=== PATIENT | female | born 1960 | race Caucasian/White ===

== ENCOUNTER 2024-10-31 08:51 | Emergency (ER) | payer MEDICARE, MEDICAID ==
--- NOTE | 2024-10-31 14:16 | RADIOLOGY REPORT ---
CHEST RADIOGRAPH Indication: CP Technique: Single frontal view of the chest was obtained Comparison: None FINDINGS: The cardiac silhouette is enlarged. The lungs demonstrate perihilar airspace opacities. Left basilar airspace opacities. The pulmonary vasculature is prominent. Small bilateral pleural effusions. There is no pneumothorax. IMPRESSION: 1. . As above<< >>
[2024-10-31 14:32] LABS: BASOPHILS % (AUTO) 0.9 % (0-1); EOSINOPHILS # (AUTO) 0.2 X10'3 (0-0.9); EOSINOPHILS % (AUTO) 3.8 % (0-6); HEMATOCRIT 38.9 % (35.0-45.0); HEMOGLOBIN 12.9 g/dl (12.0-16.0); LYMPHOCYTES # (AUTO) 1.2 X10'3 (1.1-4.8); LYMPHOCYTES % (AUTO) 23.7 % (21-51); MEAN CORPUSCULAR HEMOGLOBIN 29.5 PG (27.0-31.0); MEAN CORPUSCULAR HGB CONC 33.2 g/dL (33.0-36.5); MEAN CORPUSCULAR VOLUME 88.8 FL (78-98); MEAN PLATELET VOLUME 7.8 FL (7.4-10.4); MONOCYTES # (AUTO) 0.4 X10'3 (0-0.9); MONOCYTES % (AUTO) 8.6 % (2-12); NEUTROPHILS # (AUTO) 3.2 X10'3 (1.8-7.7); PLATELET COUNT 344 X10'3 (140-440); RED BLOOD COUNT 4.38 X10'6 (4.20-5.60); RED CELL DISTRIBUTION WIDTH 14.6 % (11.5-14.5); WHITE BLOOD COUNT 5.1 X10'3 (4.5-11.0)
[2024-10-31 14:49] LABS: ALANINE AMINOTRANSFERASE 39 U/L (12-78); ALBUMIN 3.6 G/DL (3.4-5.0); ALBUMIN/GLOBULIN RATIO 0.9 (1.1-1.5); ALKALINE PHOSPHATASE 107 IU/L (46-116); ANION GAP 8 (8-16); ASPARTATE AMINO TRANSFERASE 19 U/L (10-37); BILIRUBIN,TOTAL 0.2 MG/DL (0.1-1.0); BLOOD UREA NITROGEN 17 MG/DL (7-18); BUN/CREATININE RATIO 27.4 (10.0-20.0); CALCIUM 9.1 MG/DL (8.5-10.1); CHLORIDE 105 MMOL/L (99-107); CREATININE 0.62 MG/DL (0.40-0.90); GLUCOSE 86 MG/DL (70-104); POTASSIUM 4.3 MMOL/L (3.5-5.1); PRO BRAIN NATRIURETIC PEPTIDE 79 PG/ML (0-125); SODIUM 144 MMOL/L (135-145); TOTAL CARBON DIOXIDE 30.7 MMOL/L (24-32); TOTAL PROTEIN 7.5 G/DL (6.4-8.2); eGFR > 90 ML/MIN
--- NOTE | 2024-10-31 15:13 | Physician Documentation ---
History of Present Illness ~ General Chief Complaint: Multiple Medical Complaints Stated Complaint: MED REACTION AND MED REQUEST Time Seen by MD: 13:54 History of Present Illness Initial Comments Patient is seen today with her caregiver with complaints of needing multiple medication refills as well as they have concerns for possible swelling of the lower extremities. Patient is new to this new facility and is new to this new caregiver. Patient is developmentally delayed and disabled and is an unreliable historian. Patient is non verbal. Medication Reconciliation Allergies: Coded Allergies: No Allergy Information Available (Unverified , 10/31/24) Review of Systems Constitutional: Denies: chills, fever, weakness Eyes: Denies: pain, blurred vision ENT: Denies: ear pain, nose pain, throat pain, mouth pain Respiratory: Denies: cough, shortness of breath Cardiovascular: Denies: chest pain, palpitations Gastrointestinal: Denies: abdominal pain, nausea, vomiting Genitourinary: Denies: burning, dysuria Female Genitalia: Denies: vaginal discharge, pelvic pain Neurological: Denies: headache, dizziness Musculoskeletal: Denies: pain, swelling Integumentary: Denies: rash, lesions Allergic/Immunologic: Denies: hives, itching Hematologic/Lymphatic: Denies: no symptoms reported Psychiatric: Denies: depression, anxiety Physical Exam Physical Exam Vital Signs: Temperature: 98.2, Source: Oral, Heart Rate: 73, Respiratory Rate: 16, BP: 114/80, Pulse Oximetry: 94 Oxygen Flow Rate: 0 Physical Exam General: Awake and Alert, no acute distress. HEENT: Conjunctiva pink, Sclera clear, Mucus Membranes moist. Neck: Supple without masses and tenderness. Resp: Patient's lungs on auscultation or completely clear without any rales, rhonchi, coarse breath sounds or wheezes. Respirations are Unlabored. Lungs clear to auscultation bilaterally. Heart: Regular Rate and rhythm, normal S1 and S2 without murmur, rub or gallop. Abdomen: Soft and non tender no organomegaly Extremities: No cyanosis,clubbing or edema. Patient has no sign of pitting edema of either lower extremity. Skin: Warm and Dry. Progress Results/Orders Results/Orders Vital Signs 10/31/24 10/31/24 08:55 11:54 Temp 98.0 98.2 Pulse 73 73 Resp 16 16 B/P (MAP) 128/80 114/80 (91) Pulse Ox 97 94 O2 Flow Rate 0 0 Laboratory Tests Test 10/31/24 13:59 White Blood Count 5.1 Red Blood Count 4.38 Hemoglobin 12.9 Hematocrit 38.9 Mean Corpuscular Volume 88.8 Mean Corpuscular Hemoglobin 29.5 Mean Corpuscular Hemoglobin Concent 33.2 Red Cell Distribution Width 14.6 H Platelet Count 344 Mean Platelet Volume 7.8 Neutrophils (%) (Auto) 63.0 Lymphocytes (%) (Auto) 23.7 Monocytes (%) (Auto) 8.6 Eosinophils (%) (Auto) 3.8 Basophils (%) (Auto) 0.9 Neutrophils # (Auto) 3.2 Lymphocytes # (Auto) 1.2 Monocytes # (Auto) 0.4 Eosinophils # (Auto) 0.2 Basophils # (Auto) 0.0 CBC Comment Sodium Level 144 Potassium Level 4.3 Chloride Level 105 Carbon Dioxide Level 30.7 Anion Gap 8 Blood Urea Nitrogen 17 Creatinine 0.62 Estimated GFR/1.73 m2 > 90 BUN/Creatinine Ratio 27.4 H Glucose Level 86 Calcium Level 9.1 Total Bilirubin 0.2 Aspartate Amino Transf (AST/SGOT) 19 Alanine Aminotransferase (ALT/SGPT) 39 Alkaline Phosphatase 107 Troponin I High Sensitivity < 4 L Troponin I High Sens Percent Delta Troponin I Hi Sens Absolute Change Pro-B-Type Natriuretic Peptide 79 Total Protein 7.5 Albumin 3.6 Globulin 3.9 Albumin/Globulin Ratio 0.9 L Chemistry Comments Medical Decision Making Findings Patient is seen today with her caregiver with complaints of needing multiple medication refills as well as they have concerns for possible swelling of the lower extremities. Patient is new to this new facility and is new to this new caregiver. Patient is developmentally delayed and disabled and is an unreliable historian. Patient is non verbal. Patient is given refill of medications lacosamide 200 mg one tab once a day as well as Abilify 10 mg 1/2 tablet once a day. Patient will follow up with primary care provider soon as possible for refills for further refills. Patient will return to ED with any worsening, concerning or changing symptoms. Patient also did have some findings on chest x-ray however her vital signs are completel y stable in patient has chest auscultation completely clear on exam, and patient's labs are completely unremarkable without any sign of infection. Patient will follow up with primary care provider for repeat chest x-ray PA view and lateral view in 7-14 days. Or sooner as needed. Departure Disposition: 01 HOME / SELF CARE / HOMELESS Impression: Primary Impression: Mental developmental delay Additional Impression: Medication refill Condition: Stable Additional Instructions: Patient on exam did not have any physical exam findings of lower extremity edema. Patient is given refill of medications lacosamide 200 mg one tab once a day as well as Abilify 10 mg 1/2 tablet once a day. Patient will follow up with primary care provider soon as possible for refills for further refills. Patient will return to ED with any worsening, concerning or changing symptoms. Patient also did have some findings on chest x-ray however her vital signs are completely stable in patient has chest auscultation completely clear on exam, and patient's labs are completely unremarkable without any sign of infection. Patient will follow up with primary care provider for repeat chest x-ray PA view and lateral view in 7-14 days. Or sooner as needed. [facility] Referrals: NO PRIMARY CARE PROVIDER (PCP) Prescriptions Aripiprazole* (Abilify*) 5 Mg Tablet 1 TAB PO DAILY for 30 Days, #30 TAB 0 Refills Prov: MEHDI GAONA 10/31/24 Lacosamide (Vimpat) 200 Mg Tablet 1 TAB PO Q12H for 30 Days, #60 TAB 0 Refills Prov: MEHDI GAONA 10/31/24 Signature Scribe Signature: No scribe Attestation: No scribe MEHDI GAONA October 31, 2024 15:12
[2024-10-31] MEDS ORDERED: LACO200T2 PO (16:03)
[2024-10-31] MEDS ORDERED: ARIP5TAB12 PO (16:03)
[2024-10-31 16:12] VITALS: BP 116/80; PULSE 73; RESP 16; TEMP 98.5; O2SAT 96
== END 2024-10-31 16:17 | disposition home or self-care (01) ==
LOC: ER 08:52
DX: R62.50 Unspecified lack of expected normal physiological development in childhood (principal); Z76.0 Encounter for issue of repeat prescription
CPT/HCPCS: 36415; 71045; 80053; 83880; 84484; 85025; 99284

== ENCOUNTER 2024-12-11 09:11 | Emergency (ER) | payer MEDICARE, MEDICAID ==
[~2024-12-11] VITALS: Ht 157.5 cm; Wt 65.0 kg
[~2024-12-11 09:11] MED LIST: ARIP5TAB12 PO; LACO200T2 PO
[2024-12-11 09:16] VITALS: BP 144/74; PULSE 70; RESP 16; TEMP 98.9; O2SAT 97
--- NOTE | 2024-12-11 10:22 | Physician Documentation ---
HPI ~ General Chief Complaint: Medication Request Stated Complaint: MED REQUEST Time Seen by MD: 09:56 History of Present Illness HPI Comments 64-YEAR-OLD FEMALE WITH A LONG HISTORY OF SEIZURES AND RECENT DISCHARGE FROM AN ADULT CARE FACILITY DUE TO CLOSURE. SHE IS REQUESTING MEDICATION Medication Reconciliation Allergies: Coded Allergies: No Allergy Information Available (Unverified , 10/31/24) Scheduled Aripiprazole* (Abilify*), 1 TAB PO DAILY Lacosamide (Vimpat), 1 TAB PO Q12H Scheduled PRN Lorazepam (Ativan), 1 TAB PO Q12H PRN PRN for anxiety Suvorexant (Belsomra), 1 TAB PO HSPRN PRN for INSOMNIA Physical Exam Physical Exam Vital Signs: Temperature: 98.9, Source: Temporal, Heart Rate: 70, Respiratory Rate: 16, BP: 144/74, Pulse Oximetry: 97, Weight: 65.000 Oxygen Flow Rate: 0 Progress Results/Orders Results/Orders Vital Signs 12/11/24 09:16 Temp 98.9 Pulse 70 Resp 16 B/P (MAP) 144/74 Pulse Ox 97 O2 Flow Rate 0 Departure Disposition: 01 HOME / SELF CARE / HOMELESS Impression: Primary Impression: General medical exam Additional Impression: Medication refill Discharge Instructions: Medicine Refill at the Emergency Department Referrals: NO PRIMARY CARE PROVIDER (PCP) Prescriptions Lorazepam (Ativan) 2 Mg Tablet 1 TAB PO Q12H PRN PRN for anxiety for 14 Days, #28 TAB 0 Refills Prov: TONO PURCELL NP 12/11/24 Suvorexant (Belsomra) 15 Mg Tablet 1 TAB PO HSPRN PRN for INSOMNIA for 30 Days, #30 TAB 0 Refills Prov: TONO PURCELL NP 12/11/24 Education Educated: Patient Signature Scribe Signature: Attestation: Scribed for Tono Purcell Knockup Worker by Tono Miranda NP . 12/11/24 13:42 TONO PURCELL NP Dec 11, 2024 10:22
[2024-12-11] MEDS ORDERED: LORA2TAB96 PO (10:30)
[2024-12-11] MEDS ORDERED: SUVO15TA PO (10:30)
[2024-12-21] MEDS ORDERED: CEFP200T13 PO (10:04)
== END 2024-12-11 11:01 | disposition home or self-care (01) ==
LOC: ER 09:11
DX: Z00.8 Encounter for other general examination (principal); Z76.0 Encounter for issue of repeat prescription
CPT/HCPCS: 99281

== ENCOUNTER 2024-12-17 19:26 | Emergency (ER) | payer MEDICARE, MEDICAID ==
[~2024-12-17] VITALS: Ht 157.5 cm; Wt 71.0 kg
[~2024-12-17 19:26] MED LIST changes: +LORA2TAB96 PO; +SUVO15TA PO
--- NOTE | 2024-12-17 19:37 | Physician Documentation ---
History of Present Illness ~ Stated Complaint: FALL Time Seen by MD: 19:31 HPI Patient brought in by assisted living facility after a fall. EMS reports that patient was leaning on a table and slipped off and fell. Patient is delayed at baseline and reports no change in behavior by staff. Patient has a history of suddenly falling and staff at bedside state that this is nothing unusual for her. Tetanus within 5 Years?: No Medication Reconciliation Allergies: Coded Allergies: No Known Allergies (Unverified , 12/17/24) Scheduled Aripiprazole* (Abilify*), 1 TAB PO DAILY Lacosamide (Vimpat), 1 TAB PO Q12H Scheduled PRN Lorazepam (Ativan), 1 TAB PO Q12H PRN PRN for anxiety Suvorexant (Belsomra), 1 TAB PO HSPRN PRN for INSOMNIA Review of Systems ROS All review of systems negative except as per HPI Physical Exam Physical Exam General: Patient is awake, alert, at mental baseline per inspector tool Head: Normocephalic with bleeding over bridge of nose Eyes: Conjunctival normal. EOMI. PERRL. ENT: Mucous membranes moist. Swollen nose, possibly broken. No septal hematoma Neck: Supple, trachea is midline. In C-collar Chest: Clear to auscultation bilaterally without rales, rhonchi, or wheezes. There is no accessory muscle use or retractions. Cardiac: RRR without murmurs, gallops, or rubs. Abd: Soft, nondistended, nontender, with normoactive bowel sounds. No guarding, rebound, or rigidity. Extremities: Normal strength. Normal range of motion. No deformities or edema. Back: No midline spinal or CVA tenderness. Skin: Warm and dry with no significant rash appreciated. Neuro: Cranial nerves II-XII grossly intact. No focal neuro deficits. Patient ambulating without difficulty. Progress Results/Orders Results/Orders Orders - DELVIS CANALES MD Ct Cervical Spine (12/17/24 19:30) Ct Facial Bones/Soft Tissue (12/17/24 19:31) Ct Head (12/17/24 19:31) Dressing Orders (12/17/24 20:39) Wound Care Orders (12/17/24 20:39) Ua W/Microscopic, Cult If Ind (12/17/24 23:30) Completed Orders - DELVIS CANALES MD Ct Cervical Spine (12/17/24 19:30) Ct Facial Bones/Soft Tissue (12/17/24 19:31) Ct Head (12/17/24 19:31) Cbc/Diff (12/17/24 20:28) BMP (12/17/24 20:28) Normal Saline 1000ml (Sodium Chloride 10 (12/17/24 21:45) Medications Received in ER Medications (Trade) Dose Ordered Sig/Mu Route PRN Reason Start Time Stop Time Status Last Admin Dose Admin Sodium Chloride 1,000 ml @ 1,000 mls/hr ONCE ONCE IV 12/17/24 21:45 12/17/24 22:44 DC 12/17/24 22:36 1,000 MLS/HR Vital Signs 12/17/24 12/17/24 19:29 19:44 Temp 97.6 Pulse 80 Resp 16 16 B/P (MAP) 147/77 Pulse Ox 100 Laboratory Tests Test 12/17/24 20:49 12/17/24 23:30 White Blood Count 9.3 Red Blood Count 4.17 L Hemoglobin 13.2 Hematocrit 38.3 Mean Corpuscular Volume 91.8 Mean Corpuscular Hemoglobin 31.6 H Mean Corpuscular Hemoglobin Concent 34.4 Red Cell Distribution Width 14.5 Platelet Count 381 Mean Platelet Volume 7.0 L Neutrophils (%) (Auto) 77.2 H Lymphocytes (%) (Auto) 10.9 L Monocytes (%) (Auto) 8.9 Eosinophils (%) (Auto) 2.2 Basophils (%) (Auto) 0.8 Neutrophils # (Auto) 7.2 Lymphocytes # (Auto) 1.0 L Monocytes # (Auto) 0.8 Eosinophils # (Auto) 0.2 Basophils # (Auto) 0.1 CBC Comment Sodium Level 136 Potassium Level 3.8 Chloride Level 103 Carbon Dioxide Level 29.4 Anion Gap 4 L Blood Urea Nitrogen 16 Creatinine 1.03 H Estimated GFR/1.73 m2 54 BUN/Creatinine Ratio 15.5 Glucose Level 104 Calcium Level 9.0 Albumin 3.4 Chemistry Comments Urine Specimen Description Non-specified Urine Color Yellow Urine Clarity Clear Urine pH 7.5 Urine Specific [place] 1.010 Urine Protein Negative Urine Glucose (UA) Negative Urine Ketones Negative Urine Occult Blood Negative Urine Nitrite Negative Urine Bilirubin Negative Urine Urobilinogen 0.2 Urine Leukocyte Esterase Trace H Volume Urine Centrifuged 10 ml Urine Comment Medical Decision Making Findings Patient presents to the emergency room after sustaining a fall. Differentials include but are not limited to intracranial bleed, fractures, dislocations, soft tissue injury therefore CT scans performed which were reassuring for no emergent findings however she did break her nose. Declining to be reset. Wound care provided. Urinalysis is negative as well as labs reassuring. Family member states that she has fallen before secondary to a kidney stone however that has n o significant blood in urine and he had not feel her fall was secondary to a kidney stone. Departure Disposition: HOME / SELF CARE / HOMELESS Impression: Primary Impression: Fall Additional Impression: Broken nose Condition: Stable Discharge Instructions: Fall Prevention in the Home, Adult, [id number], Nasal Fracture, [id number] Additional Instructions: You sustained a broken nose. If UR unhappy with cosmetic of broken nose the need to follow up with Plastic surgery/ENT for intervention. Referrals: NO PRIMARY CARE PROVIDER (PCP) Signature Scribe Signature: No scribe Attestation: The note accurately reflects work and decisions made by me.Delvis Canales MD 12/18/24 00:01 DELVIS CANALES MD Dec 17, 2024 19:37
--- NOTE | 2024-12-17 20:11 | RADIOLOGY REPORT ---
EXAM: CT CT HEAD INDICATION: fall, neck pain TECHNIQUE: CT of the head without intravenous contrast. Radiation Dose : 1. Head: CT Dose: CTDI volume is 62 mGy. Dose-length product is 1170 mGy*cm The dose indicators for CT are the volume Computed Tomography (CT) Dose Index (CTDIvol) and the Dose Length Product (DLP), and are measured in units of mGy and mGy-cm, respectively. These indicators are not patient dose, but values generated from the CT scanner acquisition factors. The report includes radiation exposure data for exposures received during this examination. COMPARISON: None FINDINGS: There is no evidence of acute intracranial hemorrhage, extra-axial collection, mass effect, midline s hift, herniation or hydrocephalus. The ventricles, sulci and cisterns are age appropriate. The michaud-white differentiation is intact. Patchy periventricular and subcortical white matter hypoattenuation is nonspecific but may be related to small vessel ischemic disease. The visualized paranasal sinuses and mastoid air cells are clear. The surrounding soft tissues and osseous structures are unremarkable. IMPRESSION: 1. No acute intracranial abnormality. Radiation optimization: All CT scans at this facility use at least one of these dose optimization bakari hniques: automated exposure control mA and/or kV adjustment per patient size (includes targeted exam s where dose is matched to clinical indication) or iterative reconstruction.
--- NOTE | 2024-12-17 20:12 | RADIOLOGY REPORT ---
EXAM: CT CT CERVICAL SPINE INDICATION: fall, neck pain EXAM DATE: 12/17/2024 07:44 PM COMPARISON: None TECHNIQUE: Multiple axial CT images of the cervical spine were obtained using bone algorithm. Axial a nd coronal reformatting was done. Bone and soft tissue windows were reviewed. Radiation Dose Information: CT Dose: CTDI volume is 2 1 mGy. Dose-length product is 513 mGy*cm FINDINGS: The cervical alignment is intact. No acute cervical spine fracture is identified. The vertebral body heights are intact. No suspicious osseous lesions are identified. Moderate degenerative changes throughout the cervical spine. There is no prevertebral soft tissue swelling. IMPRESSION: 1. No evidence of acute cervical spine fracture or traumatic malalignment. 2. Moderate degenerative changes throughout the cervical spine. All CT scans at this medical facility are performed using dose modulation techniques as appropriate t o a performed exam including the following: Automated exposure control was utilized; adjustment of th e MA and/or KV according to patient size; and use of iterative reconstruction technique.
--- NOTE | 2024-12-17 20:33 | RADIOLOGY REPORT ---
EXAM: CT CT FACIAL BONES/SOFT TISSUE INDICATION: fall, neck pain EXAM DATE: 12/17/2024 07:42 PM COMPARISON: None TECHNIQUE: Multiple axial CT images of the maxilla and face were obtained using bone algorithm. Axial and coronal reformatting was done. Bone and soft tissue windows were reviewed. Radiation Dose Information: CT Dose: CTDI volume is 54.49 mGy. Dose-length product is 1014.78 mGy*cm Findings: Mildly displaced comminuted fractures of the nasal bones. Soft tissue edema of the left nasal turbina trent. There is no evidence of traumatic subluxations. No evidence of lytic, blastic, or osseous destructive lesions. The paranasal sinuses, middle ear cavities, and mastoid air cells are normally aerated. The globes an d orbits are within normal limits. The oropharynx is grossly unremarkable. The paraspinal and neck soft tissues appear within normal limits. Impression: 1. Mildly displaced comminuted fractures of the nasal bones.
[2024-12-17 21:05] LABS: ALBUMIN 3.4 G/DL (3.4-5.0); ANION GAP 4 (8-16); BLOOD UREA NITROGEN 16 MG/DL (7-18); BUN/CREATININE RATIO 15.5 (10.0-20.0); CHLORIDE 103 MMOL/L (99-107); CREATININE 1.03 MG/DL (0.40-0.90); GLUCOSE 104 MG/DL (70-104); POTASSIUM 3.8 MMOL/L (3.5-5.1); SODIUM 136 MMOL/L (135-145); TOTAL CARBON DIOXIDE 29.4 MMOL/L (24-32); eCRCL 44 ML/MIN; eGFR 54 ML/MIN
[2024-12-17 21:09] LABS: BASOPHILS # (AUTO) 0.1 X10'3 (0-0.2); BASOPHILS % (AUTO) 0.8 % (0-1); EOSINOPHILS # (AUTO) 0.2 X10'3 (0-0.9); EOSINOPHILS % (AUTO) 2.2 % (0-6); HEMATOCRIT 38.3 % (35.0-45.0); HEMOGLOBIN 13.2 g/dl (12.0-16.0); LYMPHOCYTES % (AUTO) 10.9 % (21-51); MEAN CORPUSCULAR HEMOGLOBIN 31.6 PG (27.0-31.0); MEAN CORPUSCULAR HGB CONC 34.4 g/dL (33.0-36.5); MEAN CORPUSCULAR VOLUME 91.8 FL (78-98); MONOCYTES # (AUTO) 0.8 X10'3 (0-0.9); MONOCYTES % (AUTO) 8.9 % (2-12); NEUTROPHILS # (AUTO) 7.2 X10'3 (1.8-7.7); NEUTROPHILS % (AUTO) 77.2 % (42-75); PLATELET COUNT 381 X10'3 (140-440); RED BLOOD COUNT 4.17 X10'6 (4.20-5.60); RED CELL DISTRIBUTION WIDTH 14.5 % (11.5-14.5); WHITE BLOOD COUNT 9.3 X10'3 (4.5-11.0)
[2024-12-17] MEDS: normal saline 1000ml 1,000 ML IV ONE (22:36)
[2024-12-17 23:58] LABS: BILIRUBIN,URINE NEGATIVE (Neg); CLARITY,URINE CLEAR (Clear); COLOR,URINE YELLOW (Yellow); GLUCOSE, URINE NEGATIVE (Neg); KETONES,URINE NEGATIVE (Neg); LEUKOCYTE ESTERASE ,URINE TRACE (Neg); NITRITES, URINE NEGATIVE (Neg); OCCULT BLOOD,URINE NEGATIVE (Neg); PH,URINE 7.5 (4.8-8.0); PROTEIN,URINE NEGATIVE (Neg); UROBILINOGEN,URINE 0.2 E.U/dL (0.2-1.0)
[2024-12-17 23:59] LABS: UA COLLECTION TYPE NON-SPECIFIED
[2024-12-18] MEDS ORDERED: CEPH-585 PO (00:03)
[2024-12-18 00:09] LABS: BACTERIA,URINE 1+ /HPF (Neg); MUCUS STRANDS FEW /LPF (Neg); SQUAMOUS EPITHELIAL CELL,UR FEW /LPF (FEW)
[2024-12-18 00:10] LABS: RBC,URINE 0-2 /HPF (0-2)
[2024-12-18] MEDS: potassium Cl 20 mEq SR tablet PO STA (00:14)
[2024-12-18] MEDS: cephalexin 250mg capsule PO ONE (00:19)
[2024-12-18 00:26] VITALS: BP 132/77; PULSE 74; RESP 14; TEMP 97.6; O2SAT 99
== END 2024-12-18 00:21 | disposition home or self-care (01) ==
LOC: ER 19:26
DX: S02.2XXA Fracture of nasal bones, initial encounter for closed fracture (principal); Z79.899 Other long term (current) drug therapy; W01.0XXA Fall on same level from slipping, tripping and stumbling without subsequent striking against object, initial encounter; Y93.89 Activity, other specified; Y92.89 Other specified places as the place of occurrence of the external cause; Y99.8 Other external cause status
CPT/HCPCS: 36415; 70450; 70486; 72125; 80048; 81001; 85025; 87088; 96360; 99284; A6402; C1758; J7030; 87186; A6449

== ENCOUNTER 2025-03-26 08:29 | Outpatient (CLI) | payer MEDICARE, MEDICAID ==
--- NOTE | 2025-03-26 10:15 | RADIOLOGY REPORT ---
Exam: CT CT ABDOMEN PELVIS History: URINARY TRACT INFECTION Comparison Study: None Technique: Multidetector spiral CT of the abdomen was performed from lung bases to pubic symphysis. Imaging was performed without IV contrast. Axial, coronal and sagittal multiplanar reformats were obtained from the axial data set by the technologist. Radiation Dose : 1. Abdomen/Pelvis: CTDIvol 20.5 mGy, DLP 1000.2 mGy*cm. Findings: Evaluation of solid organs is limited due to lack of intravenous contrast use. Lung Bases: Dependent atelectasis. Cardiomegaly. No pleural or pericardial effusion. Liver: The liver is normal in size. No focal lesions. Gallbladder and Biliary Tree: Unremarkable. Spleen: Unremarkable. Pancreas: The pancreas is grossly normal in appearance. Adrenal Glands: Unremarkable. Kidneys: Staghorn calculus in the left kidney measures 2.0 cm. Bladder: Right posterolateral urinary bladder diverticulum measuring 3.5 cm. Bowel: Mildly distended stomach. Moderate volume colonic stool. The appendix is unremarkable. Ascites: Absent. Lymphadenopathy: No mesenteric, retroperitoneal or periportal lymphadenopathy. Abdominal Wall and Mesentery: Unremarkable. Vasculature: The visualized abdominal aorta is normal in size and caliber. Evaluation of abdominal and pelvic vessels is limited due to lack of intravenous contrast. Pelvic Organs: Cystic structure in the right posterolateral adnexal region. Musculoskeletal: Moderate degenerative changes of bilateral hips. No aggressive focal bony lesions, acute fractures or dislocation. IMPRESSION: Staghorn calculus in the left kidney measures 2.0 cm. Right posterolateral urinary bladder diverticulum versus ovarian cyst measuring 3.5 cm. Radiation optimization: All CT scans at this facility use at least one of these dose optimization techniques: automated exposure control mA and/or kV adjustment per patient size (includes targeted exams where dose is matched to clinical indication) or iterative reconstruction.
== END 2025-03-26 23:59 | disposition home or self-care (01) ==
LOC: RAD 08:29
PROVIDERS: ATTEND Family Medicine
DX: N20.0 Calculus of kidney (principal); N39.0 Urinary tract infection, site not specified; N32.3 Diverticulum of bladder
CPT/HCPCS: 74176

== ENCOUNTER 2025-05-17 08:41 | Emergency (ER) | payer MEDICARE, MEDICAID ==
[~2025-05-17] VITALS: Ht 162.6 cm; Wt 71.3 kg
[2025-05-17 09:00] VITALS: TEMP 97.9
--- NOTE | 2025-05-17 09:32 | RADIOLOGY REPORT ---
PROCEDURE: Right knee radiographs. INDICATION: Fall TECHNIQUE: 2 views of the right knee were obtained. COMPARISON: None FINDINGS: There is no evidence of fracture or dislocation. High-riding patella. The soft tissues are unremarkable. IMPRESSION: 1. No fracture or dislocation. 2. High-riding patella. This could be positional, however Quadriceps tendon injury not excluded. Correlation with physical examination recommended.
--- NOTE | 2025-05-17 09:35 | Physician Documentation ---
History of Present Illness ~ Chief Complaint: Mechanical Fall Stated Complaint: FALL Time Seen by MD: 09:01 Mode of Arrival: EMS [facility] striking her face. No obvious abrasions or lacerations. No blood thinners & no change in behavior from baseline. Tetanus within 5 Years?: No Medication Reconciliation Allergies: Coded Allergies: No Known Allergies (Unverified , 12/17/24) Scheduled Aripiprazole* (Abilify*), 1 TAB PO DAILY Lacosamide (Vimpat), 1 TAB PO Q12H Scheduled PRN Lorazepam (Ativan), 1 TAB PO Q12H PRN PRN for anxiety Suvorexant (Belsomra), 1 TAB PO HSPRN PRN for INSOMNIA Review of Systems All Other Systems at this time: Reviewed and Negative Constitutional: Reports: see HPI Physical Exam Vital Signs: RN Vital Signs have been reviewed: Yes, Temperature: 97.9, Source: Axillary, Heart Rate: 69, Respiratory Rate: 16, BP: 125/73, Pulse Oximetry: 98, Weight: 71.300 Oxygen Flow Rate: 0 General Appearance: alert, WD/WN Head: no evidence of injury Face: normal; No: swelling, ecchymosis, deformity, midface instability, tender, abrasion, laceration Eye Lid: normal inspection Pupils/EOM/Fundus: PERRLA Ears: normal inspection Nose: normal inspection Mouth: normal inspection Respiratory: no respiratory distress Cardiovascular: normal peripheral pulses Pelvis: normal Extremities Right knee pain without deform Skin: warm/dry Neurologic: oriented x4, other (Baseline ) Motor / Sensory: no motor deficit, no sensory deficit Cerebellar function exam: normal Thoughts/Hallucinations: normal thought pattern Affect: appropriate Progress Results/Orders Results/Orders Orders - NANY LOMBARDO PAC Ct Head (05/17/25 ) Ct Facial Bones/Soft Tissue (05/17/25 ) Knee Limited (Ap/Lat) (05/17/25 ) Completed Orders - NANY LOMBARDO PAC Ct Head (05/17/25 ) Ct Facial Bones/Soft Tissue (05/17/25 ) Knee Limited (Ap/Lat) (05/17/25 ) Vital Signs 05/17/25 05/17/25 05/17/25 05/17/25 08:47 09:00 09:00 10:13 Temp 97.9 97.9 Pulse 74 69 68 Resp 18 16 16 18 B/P (MAP) 125/73 125/73 (90) 132/77 Pulse Ox 97 98 97 O2 Flow Rate 0 0 Medical Decision Making Additional information obtaine: old records Findings Examination history warrant CT imaging of the face and head. CT imaging reported by radiologist within normal limits. No obvious, contusions, abrasions or lacerations. Patient's safely discharged to return to the residence. Patient remains at her baseline. She is accompanied by staff. Safely discharged grossly neurologically intact without focal neuro deficits. Differential Dx:Considerations: Include: Closed head injury, Cardiac injury, Fracture(s), Intraabdominal injury, Pneumothorax, Cerebral contusion, Pulmonary contusion, Spine injury, Tracheal injury, Urological injury, Vascular injury, Abrasion(s), Contusion(s), Foreign body(s), Hematoma(s), Laceration(s), E ncephalopathy, Other Departure Disposition: HOME / SELF CARE / HOMELESS Impression: Primary Impression: Fall Qualified Codes: W19.XXXA - Unspecified fall, initial encounter Additional Impression: Facial contusion Qualified Codes: S00.83XA - Contusion of other part of head, initial encounter Condition: Stable Discharge Instructions: Facial or Scalp Contusion, [id number], Fall Prevention in the Home, Adult, [id number] Additional Instructions: CT scans and x-rays obtained in the Emergency department today are reassuring for no obvious fracture. Please provide Tylenol for discomfort and has a primary care physician reassess if pain continues. Thank you for visiting emergency department [facility]. Referrals: NO PRIMARY CARE PROVIDER (PCP) Education Educated: Patient Educated regarding: diagnosis, treatment, prognosis, need for follow up Signature Scribe Signature: . Attestation: . NANY LOMBARDO PAC May 17, 2025 09:35
--- NOTE | 2025-05-17 09:51 | RADIOLOGY REPORT ---
CT CT HEAD INDICATION: fALL COMPARISON: CT CT HEAD on DOS: 12/17/24 TECHNIQUE: CT of the head without intravenous contrast. RADIATION DOSE: CTDIvol: 52.3 mGy, DLP: 1092 mGy*cm FINDINGS: There is no evidence of acute intracranial hemorrhage, extra-axial collection, mass effect, midline shift, herniation or hydrocephalus. The ventricles, sulci and cisterns are age appropriate. The michaud-white differentiation is intact. The visualized paranasal sinuses and mastoid air cells are clear. The surrounding soft tissues and osseous structures are unremarkable. IMPRESSION: 1. No evidence of acute intracranial hemorrhage, mass effect or hydrocephalus.
--- NOTE | 2025-05-17 10:01 | RADIOLOGY REPORT ---
CLINICAL INDICATION: fALL TECHNIQUE: Noncontrast CT of the facial bones was performed. Sagittal and coronal reformatted images are provided. COMPARISON: CT CT FACIAL BONES/SOFT TISSUE on DOS: 12/17/24. CT Dose: CTDI volume is 54.5 mGy. Dose-length product is 1188.4 mGy*cm FINDINGS: Evaluation is limited by motion artifact despite multiple repeat images. No acute fracture. Old nasal bone fractures. Orbits are intact. Soft tissues are unremarkable. The mastoid air cells and paranasal sinuses are clear. IMPRESSION: 1. No acute fracture. All CT scans at this medical facility are performed using dose modulation techniques as appropriate to a performed exam including the following: Automated exposure control was utilized; adjustment of the MA and/or KV according to patient size; and use of iterative reconstruction technique.
[2025-05-17 10:13] VITALS: BP 132/77; PULSE 68; RESP 18; O2SAT 97
== END 2025-05-17 10:16 | disposition home or self-care (01) ==
LOC: ER 08:41
DX: S00.83XA Contusion of other part of head, initial encounter (principal); Z79.899 Other long term (current) drug therapy; W18.39XA Other fall on same level, initial encounter; Y93.89 Activity, other specified; Y92.89 Other specified places as the place of occurrence of the external cause; Y99.8 Other external cause status
CPT/HCPCS: 70450; 70486; 73560; 99284